=== PATIENT | female | born 1990 | race Caucasian/White ===

== ENCOUNTER 2021-07-06 22:25 | Emergency (ER) | payer SELFPAY ==
[~2021-07-06] VITALS: Ht 160 cm; Wt 63.5 kg
[2021-07-06 22:49] VITALS: BP 141/86
[2021-07-07] MEDS ORDERED: NACL 0.9% 1,000 ML IV ONE (00:10)
[2021-07-07] MEDS ORDERED: ONDANSETRON 4 MG/2 ML VIAL IVP ONE (00:10)
[2021-07-07] MEDS ORDERED: ACETAMINOPHEN EXTRA STRENGTH 500 MG TAB PO ONE (00:10)
[2021-07-07 00:41] LABS: BASOPHILS # (AUTO) 0.1 K/uL (0.00-0.22); EOSINOPHILS # (AUTO) 0.3 K/uL (0-0.4); EOSINOPHILS % (AUTO) 3.4 % (0.0-4.0); HEMATOCRIT 36.9 % (36-48); HEMOGLOBIN 12.1 g/dL (12.0-16.0); LYMPHOCYTES # (AUTO) 3.6 K/uL (2.5-16.5); LYMPHOCYTES % (AUTO) 37.4 % (20.5-51.1); MEAN CORPUSCULAR HEMOGLOBIN 26 pg (27-31); MEAN CORPUSCULAR HGB CONC 33 g/dL (33-37); MEAN CORPUSCULAR VOLUME 80.3 fL (80-94); MONOCYTES # (AUTO) 0.6 K/uL (0.8-1.0); MONOCYTES % (AUTO) 6.6 % (1.7-9.3); NEUTROPHILS % (AUTO) 51.6 % (42.2-75.2); PLATELET COUNT (AUTO) 242 K/uL (140-450); RED CELL DISTRIBUTION WIDTH 17.9 % (11.6-13.7); WHITE BLOOD COUNT (AUTO) 9.7 K/uL (4.8-10.8)
[2021-07-07 00:55] LABS: APPEARANCE,URINE CLEAR (CLEAR); BILIRUBIN,URINE NEGATIVE (NEGATIVE); BLOOD, URINE TRACE-I (NEGATIVE); COLOR,URINE YELLOW (YELLOW); LEUKOCYTE ESTERASE ,URINE TRACE (NEGATIVE); NITRITE, URINE NEGATIVE (NEGATIVE); UGLUCOSE NEGATIVE (NEGATIVE)
[2021-07-07 01:02] LABS: ALBUMIN 4.3 g/dL (3.4-5.0); ANION GAP 11.7 (8-16); CARBON DIOXIDE 27.1 mmol/L (21-32); CREATININE 0.6 mg/dL (0.6-1.3); POTASSIUM 3.8 mmol/L (3.5-5.1); TOTAL BILIRUBIN 0.4 mg/dL (0.0-1.0)
[2021-07-07 01:17] LABS: RBC,URINE 0-5 /HPF (0-5); WBC,URINE 0-5 /HPF (0-5)
--- NOTE | 2021-07-07 01:21 | NUR ---
PT TAKEN TO BED 4
[2021-07-07] MEDS ORDERED: ONDANSETRON 4 MG/2 ML VIAL ONE (01:23)
[2021-07-07] MEDS ORDERED: ACETAMINOPHEN EXTRA STRENGTH 500 MG TAB ONE (01:23)
[2021-07-07] MEDS ORDERED: cephALEXin 500 MG CAP PO ONE (01:30)
--- NOTE | 2021-07-07 01:35 | NUR ---
CT AT BEDSIDE
--- NOTE | 2021-07-07 02:00 | NUR ---
Ultrasound at bedside.
[2021-07-07] MEDS ORDERED: cephALEXin 500 MG CAP ONE (03:07)
[2021-07-07] MEDS ORDERED: CEPH-588 PO (03:32)
[2021-07-07] MEDS ORDERED: ONDA-188 SL (03:32)
[2021-07-07 03:50] VITALS: BP 141/86
--- NOTE | 2021-07-07 03:50 | NUR ---
Patient discharged with v/s stable. Written and verbal after care instructions given and explained. Patient alert, oriented and verbalized understanding of instructions. Ambulatory with steady gait. All questions addressed prior to discharge. ID band removed. Patient advised to follow up with PMD. Rx of CEPHALEXIN,ONDANSETRON given. Patient educated on indication of medication including possible reaction and side effects. Opportunity to ask questions provided and answered.
--- NOTE | 2021-07-07 04:15 | NUR ---
The patient's care was reviewed and supervised by Jayleen Connell RN.
[2021-07-08] MEDS ORDERED: IBUP-2213 PO (20:09)
== END 2021-07-07 03:50 | disposition home or self-care (01) ==
LOC: MED 22:25
DX: O20.0 Threatened abortion (principal); O23.41 Unspecified infection of urinary tract in pregnancy, first trimester; Z3A.01 Less than 8 weeks gestation of pregnancy
CPT/HCPCS: 36415; 76801; 80053; 81001; 84702; 85025; 86900; 86901; 87086; 99284; J7030; Q0092; 99283; J2405

== ENCOUNTER 2021-07-08 17:34 | Emergency (ER) | payer SELFPAY ==
[~2021-07-08] VITALS: Ht 160 cm; Wt 73.0 kg
[~2021-07-08 17:34] MED LIST: CEPH-588 PO; ONDA-188 SL
[2021-07-08 17:53] VITALS: BP 130/86
[2021-07-08 18:45] LABS: BASOPHILS # (AUTO) 0.1 K/uL (0.00-0.22); EOSINOPHILS # (AUTO) 0.2 K/uL (0-0.4); EOSINOPHILS % (AUTO) 3.2 % (0.0-4.0); HEMOGLOBIN 11.5 g/dL (12.0-16.0); LYMPHOCYTES # (AUTO) 2.5 K/uL (2.5-16.5); LYMPHOCYTES % (AUTO) 34.4 % (20.5-51.1); MEAN CORPUSCULAR HEMOGLOBIN 26 pg (27-31); MEAN CORPUSCULAR HGB CONC 32 g/dL (33-37); MEAN CORPUSCULAR VOLUME 80.6 fL (80-94); MONOCYTES # (AUTO) 0.6 K/uL (0.8-1.0); MONOCYTES % (AUTO) 8.3 % (1.7-9.3); NEUTROPHILS # (AUTO) 3.8 K/uL (1.8-7.7); NEUTROPHILS % (AUTO) 53.1 % (42.2-75.2); PLATELET COUNT (AUTO) 231 K/uL (140-450); RED BLOOD CELL COUNT(AUTO) 4.46 MIL/uL (4.20-5.40); RED CELL DISTRIBUTION WIDTH 17.6 % (11.6-13.7); WHITE BLOOD COUNT (AUTO) 7.2 K/uL (4.8-10.8)
[2021-07-08] MEDS ORDERED: IBUP-2213 PO (20:09)
[2021-07-08] MEDS ORDERED: KETOROLAC 60 MG/2 ML VIAL IM ONE (20:10)
[2021-07-08 20:28] VITALS: BP 120/69
== END 2021-07-08 20:23 | disposition home or self-care (01) ==
LOC: MED 17:34
DX: O03.4 Incomplete spontaneous abortion without complication (principal); Z3A.01 Less than 8 weeks gestation of pregnancy
CPT/HCPCS: 36415; 76801; 84702; 85025; 96372; 99284; J1885; Q0092

== ENCOUNTER 2021-10-10 12:42 | Emergency (ER) | payer SELFPAY ==
[~2021-10-10] VITALS: Ht 160 cm; Wt 73.5 kg
[~2021-10-10 12:42] MED LIST changes: +IBUP-2213 PO
[2021-10-10 12:46] VITALS: BP 157/100
[2021-10-10] MEDS ORDERED: BACITRACIN OINT 500 UNITS/GM PKT TP ONE (12:55)
[2021-10-10] MEDS ORDERED: ACETAMINOPHEN EXTRA STRENGTH 500 MG TAB PO ONE (12:55)
--- NOTE | 2021-10-10 13:20 | NUR ---
31/F PRESENTS TO ED WITH C/O LACERATION TO UPPER RIGHT EYEBROW AND UNDER RIGHT EYE X1 HOUR. STATES SHE WAS WALKING BEHIND HER BOYFRIENDS TRUCK AND WALKED INTO A PIECE OF ALUMINUM METAL THAT WAS HANGING OUT THE TRUCK. PATIENT DENIES LOC, TWO LACERATIONS NOTED, BRUISING AND SLIGHT SWELLING NOTED TO UNDEREYE. DENIES CHANGES IN VISION OR DIRECT TRAUMA TO EYE, BLEEDING CONTROLLED WITH PRESSURE.
[2021-10-10] MEDS ORDERED: BACI1PAC6 TP (13:37)
[2021-10-10] MEDS ORDERED: ACET-10509 PO (13:37)
[2021-10-10] MEDS ORDERED: IBUP-2213 PO (13:46)
== END 2021-10-10 14:09 | disposition home or self-care (01) ==
LOC: MED 12:42
DX: S01.81XA Laceration without foreign body of other part of head, initial encounter (principal); Z79.899 Other long term (current) drug therapy; W22.09XA Striking against other stationary object, initial encounter; Y93.01 Activity, walking, marching and hiking; Y92.89 Other specified places as the place of occurrence of the external cause; Y99.8 Other external cause status
CPT/HCPCS: 90471; 90715; 99283

== ENCOUNTER 2021-10-10 22:59 | Emergency (ER) | payer SELFPAY ==
[~2021-10-10] VITALS: Ht 160 cm; Wt 74.8 kg
[~2021-10-10 22:59] MED LIST changes: +ACET-10509 PO; +BACI1PAC6 TP
[2021-10-10 23:05] VITALS: BP 134/81
--- NOTE | 2021-10-10 23:07 | NUR ---
TO LOBBY A/W BED AMBULATORY
[2021-10-10 23:49] VITALS: BP 134/81
--- NOTE | 2021-10-10 23:50 | NUR ---
Patient discharged with v/s stable. Written and verbal after care instructions given and explained. Patient verbalized understanding. Ambulatory with steady gait. All questions addressed prior to discharge. Advised to follow up with PMD.
== END 2021-10-10 23:49 | disposition home or self-care (01) ==
LOC: MED 22:59
DX: S01.81XD Laceration without foreign body of other part of head, subsequent encounter (principal); Z79.899 Other long term (current) drug therapy; X58.XXXD Exposure to other specified factors, subsequent encounter
CPT/HCPCS: 99281

== ENCOUNTER 2021-10-12 09:26 | Emergency (ER) | payer SELFPAY ==
[~2021-10-12] VITALS: Ht 160 cm; Wt 73.3 kg
[~2021-10-12 09:26] MED LIST changes: -ACET-10509 PO
[2021-10-12 09:35] VITALS: BP 131/70
[2021-10-12] MEDS ORDERED: FLUORESCEIN OPTH STRIP 1 MG OP ONE (10:40)
[2021-10-12] MEDS ORDERED: TETRACAINE HCL/PF 0.5% OPTH 4 ML BTL OP ONE (10:40)
--- NOTE | 2021-10-12 11:26 | NUR ---
PT SEEN AND TREATED BY DR BUNCH, NO NURSING INTERVENTIONS PROVIDED
--- NOTE | 2021-10-12 11:27 | NUR ---
Patient discharged with v/s stable. Written and verbal after care instructions ABOUT EYE CONTUSION, FACIAL LACERATION, AND TISSUE ADHESIVE WOUND CARE given and explained. Patient verbalized understanding. Ambulatory with steady gait. All questions addressed prior to discharge. Advised to follow up with PMD.
== END 2021-10-12 11:27 | disposition home or self-care (01) ==
LOC: MED 09:26
DX: S05.11XD Contusion of eyeball and orbital tissues, right eye, subsequent encounter (principal); Z48.00 Encounter for change or removal of nonsurgical wound dressing; X58.XXXD Exposure to other specified factors, subsequent encounter
CPT/HCPCS: 99284

== ENCOUNTER 2021-11-02 16:16 | Emergency (ER) | payer MEDICAID ==
[~2021-11-02] VITALS: Ht 160 cm; Wt 73.5 kg
[2021-11-02 16:36] VITALS: BP 117/56
--- NOTE | 2021-11-02 16:42 | NUR ---
31 y/o female bib self from home, c/o right sided pelvic pain that radiates to the center of her pelvis and nausea for 2-3 weeks. pt states she had missed period this month, but did at home test with multiple negative results. pt denies any vomiting, diarrhea, dysuria, hematuria, vaginal bleeding or discharge. pt states in june she had a miscarriage with no follow up by . 7G 2T 5A 2L pmh: denies nka med: denies
--- NOTE | 2021-11-02 16:55 | NUR ---
md at bedside for pelvic exam
--- NOTE | 2021-11-02 17:19 | NUR ---
Ultrasound at bedside.
[2021-11-02] MEDS ORDERED: METR-520 PO (18:45)
[2021-11-02 19:03] VITALS: BP 117/56
--- NOTE | 2021-11-02 19:04 | NUR ---
Patient discharged with v/s stable. Written and verbal after care instructions given and explained. Patient alert, oriented and verbalized understanding of instructions. Ambulatory with steady gait. All questions addressed prior to discharge. ID band removed. Patient advised to follow up with PMD. Rx of metronidazole (sent) given. Patient educated on indication of medication including possible reaction and side effects. Opportunity to ask questions provided and answered.
== END 2021-11-02 19:00 | disposition home or self-care (01) ==
LOC: MED 16:16
DX: N76.0 Acute vaginitis (principal)
CPT/HCPCS: 36415; 76830; 81002; 81025; 87210; 87491; 99284; Q0092

== ENCOUNTER 2022-01-03 16:29 | Emergency (ER) | payer MEDICAID ==
[~2022-01-03] VITALS: Ht 160 cm; Wt 2.7 kg
[~2022-01-03 16:29] MED LIST changes: +METR-520 PO
[2022-01-03 16:38] VITALS: BP 115/61
--- NOTE | 2022-01-03 16:42 | NUR ---
ADY. HANDED ON URINE CUP.
--- NOTE | 2022-01-03 17:20 | NUR ---
PT AMBULATED TO THE BED
--- NOTE | 2022-01-03 17:32 | NUR ---
C/O 9/10 HEADACHE, DIZZINESS, NAUSEA X 3 DAYS AND C/O BLURRY VISION X TODAY. WHILE AT WORK GOT A HEADACHE THAT WILL NOT GO AWAY AND HAS GOTTEN WORSE. STATES SHE DID NOT HIT HER HEAD ON ANYTHING. PT HAS SOME SMALL PIN POINT BRUISING ON ABDOMEN AND L BREAST THAT COULS HAVE BEEN CAUSED BY BUMPING INTO SETHING. PT STATES NO PAIN ANYWHERE ELSE. PT RESTING IN BED. PMH: MIGRAINE
--- NOTE | 2022-01-03 17:33 | NUR ---
DR. CALDERÓN BEDSIDE EVALUATING PT
[2022-01-03] MEDS ORDERED: METOCLOPRAMIDE 10 MG/2 ML INJ VIAL IVP ONE (17:40)
[2022-01-03] MEDS ORDERED: NACL 0.9% 1,000 ML IV ONE (17:40)
[2022-01-03] MEDS ORDERED: KETOROLAC 15 MG/ML VIAL IVP ONE (17:40)
[2022-01-03] MEDS ORDERED: diphenhydrAMINE 50 MG/ML VIAL IVP ONE (17:40)
[2022-01-03 18:01] LABS: BASOPHILS # (AUTO) 0.1 K/uL (0.00-0.22); BASOPHILS % (AUTO) 0.6 % (0.0-2.0); EOSINOPHILS # (AUTO) 0.2 K/uL (0-0.4); EOSINOPHILS % (AUTO) 1.8 % (0.0-4.0); HEMATOCRIT 36.9 % (36-48); HEMOGLOBIN 11.7 g/dL (12.0-16.0); LYMPHOCYTES # (AUTO) 2.6 K/uL (2.5-16.5); LYMPHOCYTES % (AUTO) 25.4 % (20.5-51.1); MEAN CORPUSCULAR HEMOGLOBIN 26 pg (27-31); MEAN CORPUSCULAR HGB CONC 32 g/dL (33-37); MEAN CORPUSCULAR VOLUME 80.9 fL (80-94); MONOCYTES # (AUTO) 0.8 K/uL (0.8-1.0); MONOCYTES % (AUTO) 7.7 % (1.7-9.3); NEUTROPHILS # (AUTO) 6.7 K/uL (1.8-7.7); NEUTROPHILS % (AUTO) 64.5 % (42.2-75.2); PLATELET COUNT (AUTO) 232 K/uL (140-450); RED BLOOD CELL COUNT(AUTO) 4.57 MIL/uL (4.20-5.40); RED CELL DISTRIBUTION WIDTH 18.4 % (11.6-13.7); WHITE BLOOD COUNT (AUTO) 10.3 K/uL (4.8-10.8)
[2022-01-03 18:23] LABS: ANION GAP 13.3 (8-16); CARBON DIOXIDE 26.6 mmol/L (21-32); CREATININE 0.6 mg/dL (0.6-1.3); POTASSIUM 3.9 mmol/L (3.5-5.1); TOTAL BILIRUBIN 0.5 mg/dL (0.0-1.0)
--- NOTE | 2022-01-03 19:02 | NUR ---
PT STAES HEADACHE IS DECREASED AND SHE IS FEELING BETTER. NAUSEA ALSO HAS WENT AWAY WITH THE MEDICATION. PT RESTING IN BED.
--- NOTE | 2022-01-03 19:18 | NUR ---
REPOST GIVEN TO DEV
[2022-01-03] MEDS ORDERED: ONDA-188 SL (19:55)
[2022-01-03 20:25] VITALS: BP 121/64
--- NOTE | 2022-01-03 20:28 | NUR ---
Patient discharged with v/s stable. Written and verbal after care instructions given and explained. Patient alert, oriented and verbalized understanding of instructions. Ambulatory with steady gait. All questions addressed prior to discharge. ID band removed. Patient advised to follow up with PMD. Rx of ONDANSETRON given. Patient educated on indication of medication including possible reaction and side effects. Opportunity to ask questions provided and answered.
[2022-01-04] MEDS ORDERED: IBUP-2213 PO ×2 (20:43→20:48)
[2022-01-04] MEDS ORDERED: DIPH25TA53 PO ×2 (20:43→20:48)
== END 2022-01-03 20:20 | disposition home or self-care (01) ==
LOC: MED 16:29
DX: G43.519 Persistent migraine aura without cerebral infarction, intractable, without status migrainosus (principal); Z79.899 Other long term (current) drug therapy; Z79.1 Long term (current) use of non-steroidal anti-inflammatories (NSAID); Z79.2 Long term (current) use of antibiotics
CPT/HCPCS: 36415; 80053; 81002; 81025; 85025; 85610; 85730; 96361; 96374; 96375; 99284; J1200; J1885; J2765; J7030

== ENCOUNTER 2022-01-04 18:01 | Emergency (ER) | payer MEDICAID ==
[~2022-01-04] VITALS: Ht 160 cm; Wt 73.1 kg
[2022-01-04 18:27] VITALS: BP 122/76
[2022-01-04 20:17] LABS: BASOPHILS % (AUTO) 0.6 % (0.0-2.0); EOSINOPHILS # (AUTO) 0.3 K/uL (0-0.4); EOSINOPHILS % (AUTO) 3.3 % (0.0-4.0); HEMATOCRIT 36.1 % (36-48); HEMOGLOBIN 11.5 g/dL (12.0-16.0); LYMPHOCYTES % (AUTO) 38.2 % (20.5-51.1); MEAN CORPUSCULAR HEMOGLOBIN 26 pg (27-31); MEAN CORPUSCULAR HGB CONC 32 g/dL (33-37); MEAN CORPUSCULAR VOLUME 81.1 fL (80-94); MONOCYTES # (AUTO) 0.5 K/uL (0.8-1.0); MONOCYTES % (AUTO) 6.4 % (1.7-9.3); NEUTROPHILS # (AUTO) 4.1 K/uL (1.8-7.7); NEUTROPHILS % (AUTO) 51.5 % (42.2-75.2); PLATELET COUNT (AUTO) 227 K/uL (140-450); RED BLOOD CELL COUNT(AUTO) 4.45 MIL/uL (4.20-5.40); RED CELL DISTRIBUTION WIDTH 18.4 % (11.6-13.7); WHITE BLOOD COUNT (AUTO) 7.9 K/uL (4.8-10.8)
[2022-01-04 20:34] LABS: ALBUMIN 3.8 g/dL (3.4-5.0); ANION GAP 10.3 (8-16); CARBON DIOXIDE 28.9 mmol/L (21-32); CREATININE 0.7 mg/dL (0.6-1.3); POTASSIUM 4.2 mmol/L (3.5-5.1); TOTAL BILIRUBIN 0.3 mg/dL (0.0-1.0)
[2022-01-04 20:43] LABS: LIPASE 77 U/L (73-393)
[2022-01-04] MEDS ORDERED: DIPH25TA53 PO ×2 (20:43→20:48)
[2022-01-04] MEDS ORDERED: IBUP-2213 PO ×2 (20:43→20:48)
--- NOTE | 2022-01-04 20:52 | NUR ---
31 Y/O FEMALE BIBS, C/O 02/10 MID CHEST PAIN X TODAY, DESCIBED PALPITATIONS. SEEN HERE FOR MIGRAIN HEADACHE. UNLABORED BREATHING, AMBULATES W/O ASSISTANCE. PT DENIES FEVER, COUGH, OR SOB. A/OX4, GCS-15. PMH: DENIES
[2022-01-04 20:53] VITALS: BP 122/76
--- NOTE | 2022-01-04 20:53 | NUR ---
Patient discharged with v/s stable. Written and verbal after care instructions given and explained. Patient alert, oriented and verbalized understanding of instructions. Ambulatory with steady gait. All questions addressed prior to discharge. ID band removed. Patient advised to follow up with PMD. Rx of BENADRYL AND IBUPROFEN given. Patient educated on indication of medication including possible reaction and side effects. Opportunity to ask questions provided and answered. VSS, A/OX4, UNLABORED BREATHING, AMBULATORY, AND CALM DEMEANOR.
== END 2022-01-04 20:53 | disposition home or self-care (01) ==
LOC: MED 18:01
DX: R29.898 Other symptoms and signs involving the musculoskeletal system (principal); R00.2 Palpitations; Z79.899 Other long term (current) drug therapy
CPT/HCPCS: 36415; 71045; 80053; 83690; 83880; 84484; 85025; 93005; 99285

== ENCOUNTER 2022-03-14 16:43 | Emergency (ER) | payer MEDICAID ==
[~2022-03-14] VITALS: Ht 160 cm; Wt 64.9 kg
[~2022-03-14 16:43] MED LIST changes: +DIPH25TA53 PO
[2022-03-14 17:02] VITALS: BP 123/92
--- NOTE | 2022-03-14 17:10 | NUR ---
LOBBY, URINE SAMPLE GIVEN
[2022-03-14] MEDS ORDERED: LOPERAMIDE 2 MG CAP PO ONE (19:40)
[2022-03-14 19:56] LABS: BASOPHILS # (AUTO) 0.2 K/uL (0.00-0.22); EOSINOPHILS # (AUTO) 0.2 K/uL (0-0.4); EOSINOPHILS % (AUTO) 1.9 % (0.0-4.0); HEMATOCRIT 40.1 % (36-48); HEMOGLOBIN 12.8 g/dL (12.0-16.0); LYMPHOCYTES # (AUTO) 2.3 K/uL (2.5-16.5); LYMPHOCYTES % (AUTO) 24.8 % (20.5-51.1); MEAN CORPUSCULAR HEMOGLOBIN 25 pg (27-31); MEAN CORPUSCULAR HGB CONC 32 g/dL (33-37); MEAN CORPUSCULAR VOLUME 79.2 fL (80-94); MONOCYTES # (AUTO) 0.5 K/uL (0.8-1.0); MONOCYTES % (AUTO) 5.8 % (1.7-9.3); NEUTROPHILS % (AUTO) 65.5 % (42.2-75.2); PLATELET COUNT (AUTO) 303 K/uL (140-450); RED BLOOD CELL COUNT(AUTO) 5.06 MIL/uL (4.20-5.40); RED CELL DISTRIBUTION WIDTH 17.2 % (11.6-13.7); WHITE BLOOD COUNT (AUTO) 9.2 K/uL (4.8-10.8)
[2022-03-14 20:12] LABS: ALBUMIN 4.5 g/dL (3.4-5.0); ANION GAP 13.1 (8-16); CREATININE 0.6 mg/dL (0.6-1.3); POTASSIUM 4.1 mmol/L (3.5-5.1); TOTAL BILIRUBIN 0.7 mg/dL (0.0-1.0)
[2022-03-14] MEDS ORDERED: IMO2 PO (20:25)
[2022-03-14] MEDS ORDERED: CIPR500T4 PO (20:25)
[2022-03-14 20:50] VITALS: BP 123/92
--- NOTE | 2022-03-14 20:50 | NUR ---
Patient discharged [facility] chair c with v/s stable. Written and verbal after care instructions given and explained. Patient alert, oriented and verbalized understanding of instructions. Ambulatory with steady gait. All questions addressed prior to discharge. ID band removed. Patient advised to follow up with PMD. Rx of given Cipro, & Loperadime. Patient educated on indication of medication including possible reaction and side effects. Opportunity to ask questions provided and answered.
== END 2022-03-14 20:50 | disposition home or self-care (01) ==
LOC: MED 16:43
DX: R19.7 Diarrhea, unspecified (principal); R10.13 Epigastric pain; Z79.899 Other long term (current) drug therapy
CPT/HCPCS: 36415; 80053; 81002; 81025; 83690; 85025; 99283

== ENCOUNTER 2022-06-01 00:32 | Emergency (ER) | payer MEDICAID ==
[~2022-06-01] VITALS: Ht 160 cm; Wt 69.2 kg
[~2022-06-01 00:32] MED LIST changes: +CIPR500T4 PO; +IMO2 PO
[2022-06-01 00:43] VITALS: BP 120/67
--- NOTE | 2022-06-01 00:46 | NUR ---
PT TO LOBBY AMBULATORY. PT ABLE TO GIVE URINE WELL PLACED IN APPROPRIATE SPOT.
--- NOTE | 2022-06-01 02:48 | NUR ---
PT AMBULATORY TO BED #9
--- NOTE | 2022-06-01 02:55 | NUR ---
ASSUME CARE OF PT, PT C/O HEADACHE X 2 DAYS, HX- MIGRAINE, DOES NOT HAVE MEDS PRESCRIBED, PT TOOK TYLENOL 650MG AT 2100 AND MOTRIN 600MG AT 1700 YESTERDAY WITH NO RELIEF. DENIES ANY MEDICAL HISTORY.
[2022-06-01] MEDS ORDERED: METOCLOPRAMIDE 10 MG/2 ML INJ VIAL IVP ONE (03:10)
[2022-06-01] MEDS ORDERED: DEXAMETHASONE 10 MG/ML VIAL IVP ONE (03:10)
[2022-06-01] MEDS ORDERED: diphenhydrAMINE 50 MG/ML VIAL IVP ONE (03:10)
[2022-06-01] MEDS ORDERED: KETOROLAC 30 MG/ML VIAL IVP ONE (03:10)
[2022-06-01] MEDS ORDERED: NACL 0.9% 1,000 ML IV ONE (03:10)
[2022-06-01] MEDS ORDERED: MECLIZINE 25 MG TAB PO ONE (03:15)
[2022-06-01 03:29] LABS: BASOPHILS # (AUTO) 0.1 K/uL (0.00-0.22); BASOPHILS % (AUTO) 0.8 % (0.0-2.0); EOSINOPHILS # (AUTO) 0.3 K/uL (0-0.4); EOSINOPHILS % (AUTO) 3.5 % (0.0-4.0); HEMATOCRIT 35.6 % (36-48); HEMOGLOBIN 11.2 g/dL (12.0-16.0); LYMPHOCYTES # (AUTO) 3.7 K/uL (2.5-16.5); LYMPHOCYTES % (AUTO) 44.9 % (20.5-51.1); MEAN CORPUSCULAR HEMOGLOBIN 25 pg (27-31); MEAN CORPUSCULAR HGB CONC 32 g/dL (33-37); MONOCYTES # (AUTO) 0.5 K/uL (0.8-1.0); MONOCYTES % (AUTO) 6.5 % (1.7-9.3); NEUTROPHILS # (AUTO) 3.7 K/uL (1.8-7.7); NEUTROPHILS % (AUTO) 44.3 % (42.2-75.2); PLATELET COUNT (AUTO) 215 K/uL (140-450); RED BLOOD CELL COUNT(AUTO) 4.56 MIL/uL (4.20-5.40); RED CELL DISTRIBUTION WIDTH 18.1 % (11.6-13.7); WHITE BLOOD COUNT (AUTO) 8.3 K/uL (4.8-10.8)
[2022-06-01 03:48] LABS: ALBUMIN 3.7 g/dL (3.4-5.0); ANION GAP 13.4 (8-16); CARBON DIOXIDE 27.5 mmol/L (21-32); CREATININE 0.7 mg/dL (0.6-1.3); MAGNESIUM 1.9 mg/dL (1.8-2.4); PHOSPHORUS 3.8 mg/dL (2.5-4.9); POTASSIUM 3.9 mmol/L (3.5-5.1); TOTAL BILIRUBIN 0.4 mg/dL (0.0-1.0)
[2022-06-01] MEDS ORDERED: [UNRECOGNIZED DRUG - CODE] PO (04:08)
[2022-06-01] MEDS ORDERED: MECL-303 PO (04:08)
[2022-06-01] MEDS ORDERED: ONDA-188 SL (04:08)
--- NOTE | 2022-06-01 04:22 | NUR ---
PT AMBULATED TO WITH STEADY GAIT.
--- NOTE | 2022-06-01 04:24 | NUR ---
TO AMBULATED BACK TO BED WITH STEADY GAIT, PLACED ON MONITOR. FLUIDS CONTINUED.
--- NOTE | 2022-06-01 05:00 | NUR ---
PT STATES PAIN HAS REDUCE TO 4/10, PT RESTING IN BED.
--- NOTE | 2022-06-01 06:11 | NUR ---
Patient discharged with v/s stable. Written and verbal after care instructions given and explained. Patient alert, oriented and verbalized understanding of instructions. Ambulatory with steady gait. All questions addressed prior to discharge. ID band removed. Patient advised to follow up with PMD. Rx SENT ELECTRONICALLY TO PHARMACY. Patient educated on indication of medication including possible reaction and side effects. Opportunity to ask questions provided and answered.
[2022-06-01 06:12] VITALS: BP 124/68
== END 2022-06-01 06:05 | disposition home or self-care (01) ==
LOC: MED 00:32
DX: G44.209 Tension-type headache, unspecified, not intractable (principal); D50.9 Iron deficiency anemia, unspecified; H81.10 Benign paroxysmal vertigo, unspecified ear; G43.909 Migraine, unspecified, not intractable, without status migrainosus; Z98.890 Other specified postprocedural states; Z79.899 Other long term (current) drug therapy
CPT/HCPCS: 36415; 80053; 81002; 81025; 83735; 84100; 85025; 96361; 96374; 96375; 99284; J1100; J1200; J1885; J2765; J7030; J8597

== ENCOUNTER 2022-09-22 22:52 | Emergency (ER) | payer MEDICAID ==
[~2022-09-22] VITALS: Ht 160 cm; Wt 63.5 kg
[~2022-09-22 22:52] MED LIST changes: +BACI-416 TP; -BACI1PAC6 TP; +MECL-303 PO; +[UNRECOGNIZED DRUG - CODE] PO
[2022-09-22 23:14] VITALS: BP 129/91
[2022-09-23] MEDS ORDERED: LIDOCAINE 5% 1 EA PATCH TP ONE (00:10)
[2022-09-23] MEDS ORDERED: CYCL-711 PO (00:13)
[2022-09-23] MEDS ORDERED: IBUP-2218 PO (00:13)
[2022-09-23] MEDS ORDERED: ACET-10509 PO (00:13)
[2022-09-23] MEDS ORDERED: LID5T TP (00:13)
[2022-09-23 00:52] VITALS: BP 129/91
--- NOTE | 2022-09-23 00:52 | NUR ---
Patient discharged with v/s stable. Written and verbal after care instructions given and explained. Patient alert, oriented and verbalized understanding of instructions. Ambulatory with steady gait. All questions addressed prior to discharge. ID band removed. Patient advised to follow up with PMD. Rx of TYLENOL, FLEXERIL, IBUPROFEN, LIDODERM given. Patient educated on indication of medication including possible reaction and side effects. Opportunity to ask questions provided and answered.
== END 2022-09-23 00:52 | disposition home or self-care (01) ==
LOC: MED 22:52
DX: S16.1XXA Strain of muscle, fascia and tendon at neck level, initial encounter (principal); Z98.890 Other specified postprocedural states; X58.XXXA Exposure to other specified factors, initial encounter; Y93.89 Activity, other specified; Y92.89 Other specified places as the place of occurrence of the external cause; Y99.8 Other external cause status
CPT/HCPCS: 99283

== ENCOUNTER 2022-10-09 23:40 | Emergency (ER) | payer MEDICAID ==
[~2022-10-09] VITALS: Ht 160 cm; Wt 69.4 kg
[~2022-10-09 23:40] MED LIST changes: +ACET-10509 PO; +CYCL-711 PO; +IBUP-2218 PO; +LID5T TP
[2022-10-10 00:03] VITALS: BP 127/64
--- NOTE | 2022-10-10 00:06 | NUR ---
TO LOBBY A/W BED AMBULATORY
--- NOTE | 2022-10-10 04:31 | NUR ---
PT CALLED IN LOBBY AND OUTSIDE WITH NO ANSWER. PT LWBS
== END 2022-10-10 04:31 | disposition left against medical advice (07) ==
LOC: MED 23:40
DX: R51.9 Headache, unspecified (principal); R11.0 Nausea; R42 Dizziness and giddiness; R20.0 Anesthesia of skin; Z53.21 Procedure and treatment not carried out due to patient leaving prior to being seen by health care provider

== ENCOUNTER 2022-10-13 00:45 | Emergency (ER) | payer MEDICAID ==
[~2022-10-13] VITALS: Ht 160 cm; Wt 69.4 kg
[2022-10-13 00:54] VITALS: BP 130/78
--- NOTE | 2022-10-13 00:54 | NUR ---
to bed ambulatory
--- NOTE | 2022-10-13 01:13 | NUR ---
32YR OLD FEMALE BIB SELF C/O GHOSH X6 DAYS. PRESSURE 10/10 PAIN FRONTAL/SCIENTOLOGY. HX OF MIGRAINES. DENIES SOB OR CP . -N/V. PT STATES BLURRED VISION FROM A FAR. PHOTOSENSTIVE. PT LYING IN BED WITH LIGHTS OUT HOB ELEVATED. BED AT LOWEST POSITION. SIDE RAILS UP X1 NKDA MIGRAINES
--- NOTE | 2022-10-13 01:42 | NUR ---
DR VILLELA AT BEDSIDE
[2022-10-13] MEDS ORDERED: KETOROLAC 15 MG/ML VIAL IVP ONE (01:45)
[2022-10-13] MEDS ORDERED: PROCHLORPERAZINE 10 MG/2 ML VIAL IVP ONE (01:45)
[2022-10-13] MEDS ORDERED: diphenhydrAMINE 50 MG/ML VIAL IVP ONE (01:45)
[2022-10-13] MEDS ORDERED: NACL 0.9% 1,000 ML IV ONE (01:45)
[2022-10-13] MEDS ORDERED: DEXAMETHASONE 10 MG/ML VIAL IVP ONE (01:45)
[2022-10-13 02:01] LABS: BASOPHILS % (AUTO) 0.3 % (0.0-2.0); EOSINOPHILS # (AUTO) 0.3 K/uL (0-0.4); EOSINOPHILS % (AUTO) 3.7 % (0.0-4.0); HEMATOCRIT 35.4 % (36-48); HEMOGLOBIN 11.2 g/dL (12.0-16.0); LYMPHOCYTES # (AUTO) 2.8 K/uL (2.5-16.5); LYMPHOCYTES % (AUTO) 38.3 % (20.5-51.1); MEAN CORPUSCULAR HEMOGLOBIN 25 pg (27-31); MEAN CORPUSCULAR HGB CONC 32 g/dL (33-37); MEAN CORPUSCULAR VOLUME 78.9 fL (80-94); MONOCYTES # (AUTO) 0.5 K/uL (0.8-1.0); MONOCYTES % (AUTO) 7.1 % (1.7-9.3); NEUTROPHILS # (AUTO) 3.7 K/uL (1.8-7.7); NEUTROPHILS % (AUTO) 50.6 % (42.2-75.2); PLATELET COUNT (AUTO) 246 K/uL (140-450); RED BLOOD CELL COUNT(AUTO) 4.49 MIL/uL (4.20-5.40); RED CELL DISTRIBUTION WIDTH 18.1 % (11.6-13.7); WHITE BLOOD COUNT (AUTO) 7.4 K/uL (4.8-10.8)
[2022-10-13 02:10] LABS: ANION GAP 11.7 (8-16); CARBON DIOXIDE 28.4 mmol/L (21-32); CREATININE 0.7 mg/dL (0.6-1.3); POTASSIUM 4.1 mmol/L (3.5-5.1)
--- NOTE | 2022-10-13 02:12 | NUR ---
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 AT BEDSIDE
[2022-10-13 02:53] VITALS: BP 127/67
== END 2022-10-13 02:53 | disposition home or self-care (01) ==
LOC: MED 00:45
DX: G43.909 Migraine, unspecified, not intractable, without status migrainosus (principal); D50.9 Iron deficiency anemia, unspecified
CPT/HCPCS: 36415; 80048; 85025; 96361; 96374; 96375; 99284; J0780; J1100; J1200; J1885; J7030

== ENCOUNTER 2022-11-03 22:01 | Emergency (ER) | payer MEDICAID ==
[~2022-11-03] VITALS: Ht 160 cm; Wt 69.4 kg
[2022-11-03 22:20] VITALS: BP 129/75
--- NOTE | 2022-11-03 22:23 | NUR ---
TO LOBBY A/W BED AMBULATORY
--- NOTE | 2022-11-03 22:50 | NUR ---
SEEN AND EXAMINED BY KWAKU
[2022-11-03] MEDS ORDERED: FAMOTIDINE 20 MG TAB PO ONE (23:05)
[2022-11-03] MEDS ORDERED: DICYCLOMINE 10 MG CAP PO ONE (23:05)
[2022-11-03] MEDS ORDERED: ALUMINUM HYD/MAG/SIMETHICONE 30 ML UDC PO ONE (23:05)
[2022-11-03 23:21] LABS: BASOPHILS # (AUTO) 0.1 K/uL (0.00-0.22); BASOPHILS % (AUTO) 0.8 % (0.0-2.0); EOSINOPHILS # (AUTO) 0.2 K/uL (0-0.4); EOSINOPHILS % (AUTO) 2.6 % (0.0-4.0); HEMATOCRIT 36.3 % (36-48); HEMOGLOBIN 11.8 g/dL (12.0-16.0); LYMPHOCYTES % (AUTO) 12.4 % (20.5-51.1); MEAN CORPUSCULAR HEMOGLOBIN 24 pg (27-31); MEAN CORPUSCULAR HGB CONC 33 g/dL (33-37); MONOCYTES # (AUTO) 0.3 K/uL (0.8-1.0); MONOCYTES % (AUTO) 3.9 % (1.7-9.3); NEUTROPHILS # (AUTO) 6.3 K/uL (1.8-7.7); NEUTROPHILS % (AUTO) 80.3 % (42.2-75.2); PLATELET COUNT (AUTO) 260 K/uL (140-450); RED BLOOD CELL COUNT(AUTO) 4.84 MIL/uL (4.20-5.40); RED CELL DISTRIBUTION WIDTH 18.2 % (11.6-13.7); WHITE BLOOD COUNT (AUTO) 7.9 K/uL (4.8-10.8)
--- NOTE | 2022-11-03 23:25 | NUR ---
32YR FEMALE BIB SELF C/O ABD PAIN X5DAYS. +N/V DENIES FEVER SOB OR CP. PT IS A&OX4. PT STATES PAIN IS 5/10 PRESSURE/CRAMPING RADIATES FROM MIDGASTRIC TO LOWER ABD. SKIN WARM AND DRY INTACT. HOB ELEVATED BED AT LOWEST POSITION NKDA NO MED HX
[2022-11-03 23:37] LABS: ALBUMIN 3.7 g/dL (3.4-5.0); ANION GAP 13.2 (8-16); CARBON DIOXIDE 26.6 mmol/L (21-32); CREATININE 0.7 mg/dL (0.6-1.3); POTASSIUM 3.8 mmol/L (3.5-5.1); TOTAL BILIRUBIN 0.6 mg/dL (0.0-1.0)
--- NOTE | 2022-11-04 00:12 | NUR ---
URINE OBTAINED AND SENT TO LAB
[2022-11-04 00:25] LABS: BILIRUBIN,URINE NEGATIVE (NEGATIVE); BLOOD, URINE NEGATIVE (NEGATIVE); COLOR,URINE YELLOW (YELLOW); LEUKOCYTE ESTERASE ,URINE NEGATIVE (NEGATIVE); NITRITE, URINE NEGATIVE (NEGATIVE); PH,URINE 5.5 (5.0-9.0); UGLUCOSE NEGATIVE (NEGATIVE)
[2022-11-04 00:27] LABS: APPEARANCE,URINE SLIGHTLY HAZY (CLEAR)
[2022-11-04 00:31] LABS: RBC,URINE 0-5 /HPF (0-5); WBC,URINE 0-5 /HPF (0-5)
[2022-11-04] MEDS ORDERED: OMEP40EC24 PO (01:39)
[2022-11-04] MEDS ORDERED: ONDA-188 SL (01:39)
[2022-11-04] MEDS ORDERED: BEN10 PO (01:39)
[2022-11-04] MEDS ORDERED: CEPH-588 PO (01:39)
[2022-11-04 02:17] VITALS: BP 129/75
--- NOTE | 2022-11-04 02:17 | NUR ---
Patient discharged with v/s stable. Written and verbal after care instructions given and explained. Patient alert, oriented and verbalized understanding of instructions. Ambulatory with steady gait. All questions addressed prior to discharge. ID band removed. Patient advised to follow up with PMD. Rx of KEFLEX AND IBUPROFEN given. Patient educated on indication of medication including possible reaction and side effects. Opportunity to ask questions provided and answered.
== END 2022-11-04 02:17 | disposition home or self-care (01) ==
LOC: MED 22:01
DX: R10.13 Epigastric pain (principal); R42 Dizziness and giddiness; K59.00 Constipation, unspecified; Z79.899 Other long term (current) drug therapy
CPT/HCPCS: 36415; 80053; 81001; 81025; 83690; 85025; 87086; 99284

== ENCOUNTER 2023-01-21 03:00 | Emergency (ER) | payer MEDICAID ==
[~2023-01-21] VITALS: Ht 160 cm; Wt 63.5 kg
[~2023-01-21 03:00] MED LIST changes: +BEN10 PO; +OMEP40EC24 PO
[2023-01-21 03:01] VITALS: BP 131/90
--- NOTE | 2023-01-21 03:01 | NUR ---
TO BED AMBULATORY
--- NOTE | 2023-01-21 03:24 | NUR ---
REPORT FR VADIM PETERSEN , ASSUMED CARE, S/P MECHANICAL FALL , PER PT SHE HAD A COUPLE OF ALCOHOLIC DARRYL, SHE TRIPPED AND FELL , LANDED FACE FIRST ON CONCRETE , PT DENIES LOC, NEG NECK OR BACK, GAIT STEADY
--- NOTE | 2023-01-21 03:31 | NUR ---
AT TO EXAMINE
[2023-01-21] MEDS ORDERED: IBUP-2213 PO (03:37)
== END 2023-01-21 03:44 | disposition home or self-care (01) ==
LOC: MED 03:00
DX: S00.33XA Contusion of nose, initial encounter (principal); Z79.899 Other long term (current) drug therapy; W18.30XA Fall on same level, unspecified, initial encounter; Y93.89 Activity, other specified; Y92.89 Other specified places as the place of occurrence of the external cause; Y99.8 Other external cause status
CPT/HCPCS: 99282

== ENCOUNTER 2023-01-23 22:34 | Emergency (ER) | payer MEDICAID ==
[~2023-01-23] VITALS: Ht 160 cm; Wt 70.3 kg
[2023-01-23 23:09] VITALS: BP 130/77
--- NOTE | 2023-01-24 00:45 | NUR ---
PT TAKEN TO BED 4
--- NOTE | 2023-01-24 00:55 | NUR ---
Received patient to ER w/ c/o h/a rated 05/13. Patient states had fallen and hit front of head on Sunday, was treated at [facility]/ [facility] but symptoms still remain and now c/o dizziness upon position changes and head pressure. No neuro focal deficits noted. Introduced self to patient, positioned for comfort. Bed to low position sr up, continue to monitor.
--- NOTE | 2023-01-24 01:28 | NUR ---
Dr. Jaramillo examining patient.
[2023-01-24] MEDS ORDERED: MORPHINE SULFATE 2 MG/ML SYR IM STA (01:46)
[2023-01-24] MEDS ORDERED: ACETAMINOPHEN EXTRA STRENGTH 500 MG TAB PO ONE (01:50)
--- NOTE | 2023-01-24 02:08 | NUR ---
patient medicated as ordered w/ tylenol and morphine im. will observe for any adverse reaction. patient to ct scan via w/c.
[2023-01-24] MEDS ORDERED: [UNRECOGNIZED DRUG - CODE] PO (03:18)
[2023-01-24] MEDS ORDERED: ONDA-188 SL (03:18)
--- NOTE | 2023-01-24 03:38 | NUR ---
patient ok to d/c home given aci and rx verbalized understanding of f/u care and taking of rx medications.Patient discharged with v/s stable. Written and verbal after care instructions given and explained. Patient alert, oriented and verbalized understanding of instructions. Ambulatory with steady gait. All questions addressed prior to discharge. ID band removed. Patient advised to follow up with PMD. Rx of tylenol #3 and zofran odt given. Patient educated on indication of medication including possible reaction and side effects. Opportunity to ask questions provided and answered.
[2023-01-24 03:39] VITALS: BP 114/61
[2023-01-24] MEDS ORDERED: MECL-303 PO (04:36)
[2023-01-24] MEDS ORDERED: ACET-10509 PO (04:36)
[2023-01-24] MEDS ORDERED: IBUP-2218 PO (04:36)
== END 2023-01-24 03:38 | disposition home or self-care (01) ==
LOC: MED 22:34
DX: S06.0X0A Concussion without loss of consciousness, initial encounter (principal); Z79.899 Other long term (current) drug therapy; Z79.2 Long term (current) use of antibiotics; Z79.1 Long term (current) use of non-steroidal anti-inflammatories (NSAID); W18.39XA Other fall on same level, initial encounter; Y92.89 Other specified places as the place of occurrence of the external cause; Y93.89 Activity, other specified; Y99.8 Other external cause status
CPT/HCPCS: 70450; 96372; 99285; J2270

== ENCOUNTER 2023-02-21 21:53 | Emergency (ER) | payer MEDICAID ==
[~2023-02-21] VITALS: Ht 160 cm; Wt 66.7 kg
[~2023-02-21 21:53] MED LIST changes: -BACI-416 TP; +BACI-418 TP
--- NOTE | 2023-02-21 22:30 | NUR ---
MD Bender assessing pt.
[2023-02-21 22:31] VITALS: BP 141/93; PULSE 62; RESP 20; TEMP 97.6; O2SAT 100
[2023-02-21 23:01] LABS: APPEARANCE,URINE CLEAR (CLEAR); BILIRUBIN,URINE NEGATIVE (NEGATIVE); BLOOD, URINE NEGATIVE (NEGATIVE); COLOR,URINE YELLOW (YELLOW); LEUKOCYTE ESTERASE ,URINE NEGATIVE (NEGATIVE); NITRITE, URINE NEGATIVE (NEGATIVE); UGLUCOSE NEGATIVE (NEGATIVE)
[2023-02-21 23:10] LABS: BASOPHILS # (AUTO) 0.1 K/uL (0.00-0.22); BASOPHILS % (AUTO) 0.9 % (0.0-2.0); EOSINOPHILS # (AUTO) 0.2 K/uL (0-0.4); EOSINOPHILS % (AUTO) 2.5 % (0.0-4.0); HEMATOCRIT 32.3 % (36-48); HEMOGLOBIN 10.2 g/dL (12.0-16.0); LYMPHOCYTES # (AUTO) 3.3 K/uL (2.5-16.5); MEAN CORPUSCULAR HEMOGLOBIN 23 pg (27-31); MEAN CORPUSCULAR HGB CONC 32 g/dL (33-37); MONOCYTES # (AUTO) 0.5 K/uL (0.8-1.0); MONOCYTES % (AUTO) 6.9 % (1.7-9.3); NEUTROPHILS # (AUTO) 3.8 K/uL (1.8-7.7); NEUTROPHILS % (AUTO) 47.7 % (42.2-75.2); PLATELET COUNT (AUTO) 281 K/uL (140-450); RED BLOOD CELL COUNT(AUTO) 4.42 MIL/uL (4.20-5.40); WHITE BLOOD COUNT (AUTO) 7.9 K/uL (4.8-10.8)
[2023-02-21 23:31] LABS: ALBUMIN 3.8 g/dL (3.4-5.0); CARBON DIOXIDE 28.7 mmol/L (21-32); CREATININE 0.6 mg/dL (0.6-1.3); POTASSIUM 3.7 mmol/L (3.5-5.1); TOTAL BILIRUBIN 0.3 mg/dL (0.0-1.0)
[2023-02-22] MEDS ORDERED: ALUMINUM HYD/MAG/SIMETHICONE 30 ML UDC PO ONE (00:50)
[2023-02-22] MEDS ORDERED: FAMOTIDINE 20 MG TAB PO ONE (00:50)
[2023-02-22] MEDS ORDERED: FAMO-90 PO (01:07)
[2023-02-22] MEDS ORDERED: BEN10 PO (01:07)
[2023-02-22] MEDS ORDERED: ONDA-188 PO (01:07)
--- NOTE | 2023-02-22 01:15 | NUR ---
Pt medicated as ordered; Tolerated well.
[2023-02-22 01:25] VITALS: BP 130/84; PULSE 66; RESP 20; TEMP 97.5; O2SAT 100
--- NOTE | 2023-02-22 01:25 | NUR ---
Patient discharged with v/s stable. Written and verbal after care instructions given and explained. Patient alert, oriented and verbalized understanding of instructions. All questions addressed prior to discharge. ID band removed. Patient advised to follow up with PMD. Rx of Bentyl, Pepcid, and Zofran sent to preferred pharmacy. Patient educated on indication of medication including possible reaction and side effects. Opportunity to ask questions provided and answered.
== END 2023-02-22 01:25 | disposition home or self-care (01) ==
LOC: MED 21:53
DX: K29.70 Gastritis, unspecified, without bleeding (principal); N93.9 Abnormal uterine and vaginal bleeding, unspecified; Z98.890 Other specified postprocedural states; Z79.899 Other long term (current) drug therapy; Z79.1 Long term (current) use of non-steroidal anti-inflammatories (NSAID); Z79.2 Long term (current) use of antibiotics
CPT/HCPCS: 36415; 80053; 81003; 81025; 83690; 85025; 99283

== ENCOUNTER 2023-04-13 00:05 | Emergency (ER) | payer MEDICAID ==
[~2023-04-13] VITALS: Ht 160 cm; Wt 68.0 kg
[~2023-04-13 00:05] MED LIST changes: +FAMO-90 PO; +ONDA-188 PO
[2023-04-13 00:16] VITALS: BP 131/80; PULSE 70; RESP 17; TEMP 98; O2SAT 99
[2023-04-13 01:00] VITALS: BP 115/68; PULSE 69; RESP 17; O2SAT 98
[2023-04-13] MEDS ORDERED: diphenhydrAMINE 50 MG/ML VIAL IVP ONE (01:40)
[2023-04-13] MEDS ORDERED: NACL 0.9% 1,000 ML IV ONE (01:40)
[2023-04-13] MEDS ORDERED: PROCHLORPERAZINE 10 MG/2 ML VIAL IVP ONE (01:40)
[2023-04-13] MEDS ORDERED: KETOROLAC 15 MG/ML VIAL IVP ONE (01:40)
[2023-04-13] MEDS ORDERED: IBUP-2213 PO (03:32)
== END 2023-04-13 03:42 | disposition home or self-care (01) ==
LOC: MED 00:05
DX: R51.9 Headache, unspecified (principal); R42 Dizziness and giddiness; H53.149 Visual discomfort, unspecified; Z79.899 Other long term (current) drug therapy
CPT/HCPCS: 81002; 81025; 96361; 96374; 96375; 99284; J0780; J1200; J1885; J7030

== ENCOUNTER 2023-06-21 23:28 | Emergency (ER) | payer MEDICAID ==
[~2023-06-21] VITALS: Ht 160 cm; Wt 69.4 kg
[2023-06-21 23:40] VITALS: BP 153/84; PULSE 61; RESP 16; TEMP 97.4; O2SAT 100
[2023-06-22 00:19] LABS: APPEARANCE,URINE CLEAR (CLEAR); BILIRUBIN,URINE NEGATIVE (NEGATIVE); BLOOD, URINE 1+ (NEGATIVE); COLOR,URINE YELLOW (YELLOW); LEUKOCYTE ESTERASE ,URINE NEGATIVE (NEGATIVE); NITRITE, URINE NEGATIVE (NEGATIVE); PROTEIN,URINE NEGATIVE (NEGATIVE); UGLUCOSE NEGATIVE (NEGATIVE); UROBILINOGEN,URINE 0.2 EU/dL (0.2 - 1)
[2023-06-22 00:20] LABS: WBC,URINE 0-5 /HPF (0-5)
[2023-06-22 00:21] LABS: BACTERIA,URINE FEW /HPF (None Seen); MUCUS,URINE 1+ /LPF (None Seen); SQUAMOUS EPITHELIAL CELL,UR 20-50 /LPF (0-3 (FEW))
[2023-06-22 01:45] VITALS: BP 153/84; PULSE 61; RESP 16; TEMP 97.4; O2SAT 100
== END 2023-06-22 01:15 | disposition left against medical advice (07) ==
LOC: MED 23:28
DX: R10.9 Unspecified abdominal pain (principal); Z53.21 Procedure and treatment not carried out due to patient leaving prior to being seen by health care provider
CPT/HCPCS: 81001; 81025; 99281

== ENCOUNTER 2023-10-11 17:41 | Emergency (ER) | payer MEDICAID, OTHER ==
[~2023-10-11] VITALS: Ht 160 cm; Wt 68.0 kg
[2023-10-11 18:19] VITALS: BP 111/77; PULSE 69; RESP 16; TEMP 98.1; O2SAT 100
[2023-10-11] MEDS ORDERED: MECL-231 PO (19:33)
[2023-10-11] MEDS ORDERED: NITR100C7 PO (19:33)
[2023-10-11] MEDS ORDERED: PYR100 PO (19:33)
[2023-10-11] MEDS ORDERED: IBUP-2213 PO (19:33)
== END 2023-10-11 19:44 | disposition home or self-care (01) ==
LOC: MED 17:41
DX: N39.0 Urinary tract infection, site not specified (principal); G43.909 Migraine, unspecified, not intractable, without status migrainosus; Z79.899 Other long term (current) drug therapy; Z79.1 Long term (current) use of non-steroidal anti-inflammatories (NSAID); Z79.2 Long term (current) use of antibiotics
CPT/HCPCS: 81002; 81025; 87086; 99283

== ENCOUNTER 2024-02-18 16:19 | Emergency (ER) | payer OTHER ==
[~2024-02-18] VITALS: Ht 160 cm; Wt 70.5 kg
[~2024-02-18 16:19] MED LIST changes: +MECL-231 PO; +NITR100C7 PO; +PYR100 PO
[2024-02-18 17:10] VITALS: BP 104/59; PULSE 80; RESP 16; TEMP 98.2; O2SAT 97
[2024-02-18 17:40] LABS: APPEARANCE,URINE CLEAR (CLEAR); BILIRUBIN,URINE NEGATIVE (NEGATIVE); BLOOD, URINE NEGATIVE (NEGATIVE); COLOR,URINE YELLOW (YELLOW); LEUKOCYTE ESTERASE ,URINE NEGATIVE (NEGATIVE); NITRITE, URINE NEGATIVE (NEGATIVE); PROTEIN,URINE NEGATIVE (NEGATIVE); UGLUCOSE NEGATIVE (NEGATIVE); UROBILINOGEN,URINE 0.2 EU/dL (0.2 - 1)
[2024-02-18] MEDS ORDERED: CEFP100T18 PO (18:00)
== END 2024-02-18 18:37 | disposition home or self-care (01) ==
LOC: MED 16:19
DX: O23.42 Unspecified infection of urinary tract in pregnancy, second trimester (principal); N39.0 Urinary tract infection, site not specified; O26.892 Other specified pregnancy related conditions, second trimester; R10.2 Pelvic and perineal pain; Q82.3 Incontinentia pigmenti; Z3A.14 14 weeks gestation of pregnancy; Z79.899 Other long term (current) drug therapy
CPT/HCPCS: 81003; 81025; 87086; 87491; 99283